=== PATIENT | female | born 1950 | race Caucasian/White ===

== ENCOUNTER 2016-11-20 13:40 | Emergency (ER) | payer OTHER ==
[2016-11-20] MEDS ORDERED: ACETAMINOPHEN 325 MG TAB ONE (16:51)
[2016-11-20] MEDS ORDERED: PROMETHAZINE 25 MG/ML VIAL ONE (17:27)
[2016-11-20] MEDS ORDERED: DIPHENHYDRAMINE 50 MG/ML VIAL ONE (17:27)
[2016-11-20] MEDS ORDERED: KETOROLAC 30 MG/ML VIAL ONE (17:28)
[2016-11-20] MEDS ORDERED: SODIUM CHLORIDE 0.9% 1,000 ML ONE (17:28)
[2016-11-20] MEDS ORDERED: LORAZEPAM 2 MG/ML VIAL ONE (18:39)
== END 2016-11-20 19:53 | disposition home or self-care (01) ==
LOC: ER 13:40
CPT/HCPCS: 70450 ×2; 96361 ×2; 96374 ×2; 96375 ×2; 99284; J1885; J2550